=== PATIENT | male | born 1975 | race Caucasian/White ===

== ENCOUNTER → 2025-07-17 | Outpatient (CLI) | payer BC, SELFPAY ==
--- NOTE | 2025-07-17 06:51 | CT_ITS ---
PROCEDURE: LIMITED CHEST CT CARDIAC ONLY 07/17/2025 REASON FOR EXAM: SCREENING TECHNIQUE: Procedure Code: [id number] Modality: CT Procedure: LIMITED CHEST CT CARDIAC ONLY CONTRAST: None One or more dose reduction techniques were used (e.g., Automated exposure control, adjustment of the mA and/or kV according to patient size, use of iterative reconstruction technique). RADIATION DOSE SUMMARY: CTDlvol: 12.19 mGy DLP: 268.17 mGycm COMPARISON: None FINDINGS: The heart is nonenlarged. No coronary artery calcification is seen. The ascending aorta is unremarkable. The visualized portions of the lungs are clear. CT/Limited Chest CT Cardiac Only IMPRESSION: No coronary artery calcification is seen. Reading Location: [place] [id number]
--- OUTSIDE RECORDS SUMMARY | 2025-07-17 06:51 | XMS RPT_ITS | CCD ---
Author Organization [facility] Care Team Providers Care Joint Sealer Name Role Phone Nino Tijerina Unavailable Unavailable Unavailable Nino Tijerina Primary Care Unavailziggy Ng Sr, Dr. Lester Bateman Attending Felicity Jimy Murray MD Primary Care Provider JIMY AGUILA Primary Care Unavailable Nino Tijerina MD Primary Care Provider NINO TIJERINA Primary Care Unavailable GULSHAN HENDERSON Referring Unavailable Gulshan Henderson CNP Unavailable [phone] Celeste LYLES.Enriqueta MAHAJAN Unavailable [phone] Phil Duke APRN.CNP Unavailable [phone] ABRIL BARRY Attending Unavailable JIMY AGUILA Primary Care Unavailable ABRIL BARRY Referring Unavailable JIMY AGUILA Primary Care Unavailable Allergies Allergy Classification Reported Allergen(s) Allergy Type Date of Onset Reaction(s) Facility (1 source) meloxicam Drug Allergy 04-11-2022 [employer] Phone: Medications Current Medications Medication Drug Class(es) Dates Sig (Normalized) Sig (Original) amoxicillin 875 mg / clavulanate 125 mg oral tablet (3 sources) Penicillin-class Antibacterial Start: 05-21-20 19 take 1 tablet by mouth twice daily amoxicillin-clavulani c acid (AUGMENTIN) 875-125 mg per tablet Take 1 tablet by mouth twice daily. 0 05/21/2019 Active meloxicam 15 mg oral tablet (3 sources) Nonsteroidal Anti-inflammatory Drug Start: 06-21-20 17 take 1 tablet by mouth once daily meloxicam (MOBIC) 15 mg tablet Take 1 tablet by mouth once daily. 30 tablet 1 06/21/2017 Active Methocarbamol (2 sources) Muscle Relaxant Start: 02-04-20 25 take 1 tablet by mouth four times daily methocarbamol (TANLOR) 1,000 mg tablet Take 1 tablet by mouth four times daily. 120 tablet 1 02/03/2025 Active methylPREDNISolone (3 sources) Corticosteroid Start: 07-26-20 methylPREDNISolone (MEDROL DOSE-PACK) 4 mg Dose-Pack Indications: Plantar fasciitis As Instructed per package 1 Package 07/26/2017 Active naloxone hydrochloride 40 mg/ml nasal spray (1 source) Opioid Antagonist Start: 05-07-20 naloxone 4 MG/0.1ML LIQD nasal spray 1 spray by Nasal route as needed for Opioid Reversal 2 each 05/07/2024 Active neomycin/polymyxin B/hydrocort (CORTISPORIN OTIC) (3 sources) neomycin/polymyx in B/hydrocort (CORTISPORIN OTIC) Use in the ears. Active sildenafil 100 mg oral tablet (1 source) Phosphodiesterase 5 Inhibitor Start: 05-04-20 sildenafil (VIAGRA) 100 MG tablet 05/04/2022 Active traMADol hydrochloride 50 mg oral tablet (4 sources) Opioid Agonist Start: 11-22-19 End: 12-20-19 take 2 tablets by mouth every six hours as needed for pain traMADol (ULTRAM) 50 MG tablet Indications: Osteoarthritis of right knee, unspecified osteoarthritis type , Chronic pain of right knee Take 2 tablets by mouth every 6 hours as needed for Pain for up to 28 days. Do not fill until 11/21/24 for 28 days. Take lowest dose possible to manage pain Max Daily Amount: 400 mg 224 tablet 11/21/2024 12/19/2024 Active Start: 09-29-2011 take 1 tablet by gianna th every four hours as needed traMADOL 50 mg ORAL tablet Take 1 tablet by mouth every 4 hours as needed for Pain. 40 tablet 0 09/29/2011 Active Completed/Discontinued Medications Medication Drug Class(es) Dates Sig (Normalized) Sig (Original) azithromycin 250 mg oral tablet (2 sources) Macrolide Antimicrobial Start: 02-22-2022 Azithromycin 250 MG Oral Tablet TAKE 2 TABLETS ON DAY 1 THEN TAKE 1 TABLET A DAY FOR 4 DAYS. Quantity: 1 Refills: 0 Ordered: 22-Feb-2022 Nadeem Rolle DO Start : 22-Feb-2022 Active benzonatate 200 mg oral capsule (2 sources) Non-narcotic Antitussive Start: 02-22-2022 take 1 capsule by mouth three times daily as needed Benzonatate 200 MG Oral Capsule TAKE 1 CAPSULE 3 TIMES DAILY NEEDED. Quantity: 30 Refills: 0 Ordered: 22-Feb-2022 Nadeem Rolle DO Start : 22-Feb-2022 Active Problems Active Problems Problem Classification Problem Date Documented Date Episodic/Chronic Fever of unknown origin (2 sources) Fever; Translations: [Fever, unspecified] Episodic Osteoarthritis (7 sources) Unilateral primary osteoarthritis, right knee; Translations: [Osteoarthritis of right knee joint] Onset: 05-07-2024 11-19-2024 Chronic Other connective tissue disease (2 sources) History of total knee arthroplasty; Translations: [Presence of right artificial knee joint] 02-03-2025 Chronic Other connective tissue disease (1 source) Presence of right artificial knee joint; Translations: [Status post right knee replacement] Onset: 02-03-2025 Chronic Other ear and sense organ disorders (1 source) Cholesteatoma of attic, left ear; Translations: [Cholesteatoma of attic, left ear] Onset: 12-15-2022 Episodic Other lower respiratory disease (2 sources) Cough; Translations: [Cough] Episodic Other nervous system disorders (3 sources) Right tarsal tunnel syndrome; Translations: [Tarsal tunnel syndrome, right lower limb] Onset: 03-16-2011 03-16-2011 Chronic Other nervous system disorders (1 source) Other chronic pain; Translations: [Other chronic pain] Onset: 11-19-2024 Chronic Other non-traumatic joint disorders (2 sources) Pain in right knee; Translations: [Pain in joint, lower leg] Onset: 11-19-2024 11-19-2024 Episodic Residual codes; unclassified (1 source) Pain; Translations: [Pain, unspecified] 02-03-2025 Episodic Residual codes; unclassified (1 source) Pain, unspecified; Translations: [Pain] Onset: 02-03-2025 Episodic Unclassified (1 source) Chronic pain of right knee 11-19-2024 Past or Other Problems Problem Classification Problem Date Documented Da te Episodic/Chronic Joint disorders and dislocations; trauma-related (4 sources) Tear of medial meniscus of knee; Translations: [Other tear of medial meniscus, current injury, unspecified knee, initial encounter] Onset: 03-30-2011 03-30-2011 Episodic Other connective tissue disease (4 sources) Plantar fascial fibromatosis; Translations: [Plantar fascial fibromatosis] Onset: 12-01-2010 12-01-2010 Episodic Spondylosis; intervertebral disc disorders; other back problems (3 sources) Disorder of right sciatic nerve; Translations: [Sciatica, right side] Onset: 03-16-2011 03-16-2011 Episodic Results Test Name Value Interpretation Reference Range Facility CNOV 02-03-2025 CNOV Office Visit (ORTHST ) -- GEORGE QUEEN ([id number]) 1975 M Date Time Provider Department 02/03/25 3:20 PM ABRIL BARRY During your visit today, we recorded the following information about you: Abril Barry MD 02/03/2025 4:27 PM Signed George Queen Follow-up right knee pain. Had a scope 14 years ago. Had some arthritis at that time. Since that has been treating for arthritis. He has had multiple injections both steroid and gel. He has had a nerve ablation. He has done therapy. Has progressed to the point where it is affecting his quality life. Has pain at rest and at night with all physical activities. Otherwise healthy.Review of systems negative for fever, weight loss, malaise, fatigue, significant headache, vision changes, hearing loss, neck swelling, cough, chest pain, shortness of breath, dyspnea on exertion, abdominal pain, nausea, vomiting, diarrhea, urinary dysfunction, upper/lower extremity numbness/tingling/weakness /edema, heat/cold intolerance On exam right knee healed arthroscopy portals. Motion 0 to 120 degrees with crepitation. Some guarding. Mild joint line tenderness. No instability. Left knee motion 0 to 130 degrees. X-rays right knee moderate narrowing. Assessment right knee arthritis. Has failed conservative treatment and with like to proceed with definitive treatment which would be knee replacement. Risks and benefits were discussed and all questions answered. Will schedule this for late fall. Ordered him a muscle relaxer, tanlor, to go with the tramadol he is taking. All questions answered. Abril Barry MD Allergies As of Date: 02/03/2025 (No Known Allergies) Date Reviewed: 02/03/2025 Reviewed by: Tamiko Patino MA - Fully Assessed Reason for Visit: Follow Up [171] Primary Visit Diagnosis:Primary osteoarthritis of right knee [M17.11] Other Visit Diagnosis:Status post right knee replacement [Z96.651] Order(s):methocarbamol (TANLOR) 1,000 mg tabletTake 1 tablet by mouth four times daily.Disp: 120 tabletRfl: 1 WALKER FOLDING WHEELED W/O S [[id number]] Order #: [id number] CONSULT TO PHYSICAL THERAPY [9032] Order #: [id number]: 1 FUTURE Prescriptions as of 02/03/2025 - methocarbamol (TANLOR) 1,000 mg tablet Take 1 tablet by mouth four times daily. - neomycin/polymyxin B/hydrocort (CORTISPORIN OTIC) Use in the ears. - amoxicillin-clavulanic acid (AUGMENTIN) 875-125 mg per tablet Take 1 tablet by mouth twice daily. - methylPREDNISolone (MEDROL DOSE-PACK) 4 mg Dose-Pack As Instructed per package - meloxicam (MOBIC) 15 mg tablet Take 1 tablet by mouth once daily. - traMADOL 50 mg ORAL tablet Take 1 tablet by mouth every 4 hours as needed for Pain. Problem List As Of Date 02/03/2025 Noted Resolved Plantar fascial fibromatosis [M72.2] 12/01/2010 Tarsal tunnel syndrome of right side [G57.51] 03/16/2011 Sciatica of right side [M54.31] 03/16/2011 MMT (medial meniscus tear) [S83.249A] 03/30/2011 Prescriptions ordered this encounter Disp Refills Start End METHOCARBAMOL 1,000 MG TABLET 120 * 1 02/03/2025 Cmt: Tanlor only Route: PO Sig: Take 1 tablet by mouth four times daily. Letter Text Encounter Status:Closed by ABRIL BARRY on 02/03/25 Normal [facility] XR KNEE 4V AP/PA BOTH+LAT/ME R RTon 02-03-2025 XR KNEE 4V AP/PA BOTH+LAT/ANA RT * * *Final Report* * * DATE OF EXAM: Feb 03 2025 2:20PM STX 5203 - XR KNEE 4V AP/PA BOTH+LAT/ANA RT / PROCEDURE REASON: Pain * * * * Physician Interpretation * * * * EXAM: XR KNEE 4V AP/PA BOTH+LAT/ANA RT HISTORY: Pain . right knee pain for years TECHNIQUE: XR KNEE 4V AP/PA BOTH+LAT/ANA RT Laterality: RIGHT Number of different views (projections): 4 COMPARISON: 06/24/2024 RESULT: Bone mineralization is normal without aggressive osseous lesion. No fracture or dislocation is present. The joint spaces are stable with minimal medial joint space loss bilaterally. No soft tissue abnormality. IMPRESSION: No acute osseous abnormality. Minimal stable medial knee joint space loss bilaterally. [facility] Transcribe Date/Time: Feb 04 2025 9:45A Dictated by : KATHI ARANA MD This examination was interpreted and the report reviewed and electronically signed by: KATHI ARANA MD on Feb 04 2025 9:47AM EST [id number] Normal [facility] MR Knee - right WO contrasto n 11-19-2024 Degenerative changes most prominent in the medial femorotibial compartment with moderate to high-grade cartilage loss. Degenerative changes of the medial meniscus also with meniscal tear as described. Mild patellar instability. No chondromalacia. [facility] RADIOLOGY EXAMINATION: MRI OF THE RIGHT KNEE WITHOUT CONTRAST11/19/2024 11:00 am COMPARISON: None TECHNIQUE: Multiplanar multisequence MRI of the right knee was performed without the administration of intravenous contrast. HISTORY: ORDERING SYSTEM PROVIDED HISTORY: Osteoarthritis of right knee, unspecified osteoarthritis type, Chronic pain of right knee, Chronic pain of right knee TECHNOLOGIST PROVIDED HISTORY: Reason for exam:->worsening Rt knee pain What reading provider will be dictating this exam?->CRC, FINDINGS: Bones and joints: The medial femorotibial compartment shows moderate to high-grade articular cartilage loss without subchondral changes. The cartilage in the lateral femorotibial compartment is intact. Mild bone marrow signal alteration in the posterolateral tibia near the tibia-fibular articulation and in the intercondylar aspect of the tibia is most consistent with reactive changes. No other pathologic marrow abnormality is seen. There is small knee joint effusion. No significant popliteal cyst. Menisci: The lateral meniscus is normal in morphology and signal. There is fraying and irregular morphology of the free edge of the medial meniscal body and posterior horn. There is suggestion of a horizontal tear in the posterior horn and adjacent body extending to the articular surface best seen on the sagittal images. No meniscal extrusion or para meniscal cyst. Patellofemoral compartment: There is mild lateral subluxation of the patella. No focal or high-grade chondromalacia. Patellar retinacula are intact. No obvious impingement of the suprapatellar or infrapatellar fat. Ligaments: There is mucoid degeneration of the ACL with normal trajectory. The PCL is intact. Collateral ligaments and other major lateral supporting structures show no recent or high-grade sprain. Muscles and tendons: Normal extensor mechanism. Other muscles and tendons around the knee are also unremarkable. Other soft tissues: No significant soft tissue edema around the knee. No extra-articular fluid collections. [facility] RADIOLOGY Chris Hogan MD - 11/19/2024 EXAMINATION: MRI OF THE RIGHT KNEE WITHOUT CONTRAST11/19/2024 11:00 am COMPARISON: None TECHNIQUE: Multiplanar multisequence MRI of the right knee was performed without the administration of intravenous contrast. HISTORY: ORDERING SYSTEM PROVIDED HISTORY: Osteoarthritis of right knee, unspecified osteoarthritis type, Chronic pain of right knee, Chronic pain of right knee TECHNOLOGIST PROVIDED HISTORY: Reason for exam:->worsening Rt knee pain What reading provider will be dictating this exam?->CRC, FINDINGS: Bones and joints: The medial femorotibial compartment shows moderate to high-grade articular cartilage loss without subchondral changes. The cartilage in the lateral femorotibial compartment is intact. Mild bone marrow signal alteration in the posterolateral tibia near the tibia-fibular articulation and in the intercondylar aspect of the tibia is most consistent with reactive changes. No other pathologic marrow abnormality is seen. There is small knee joint effusion. No significant popliteal cyst. Menisci: The lateral meniscus is normal in morphology and signal. There is fraying and irregular morphology of the free edge of the medial meniscal body and posterior horn. There is suggestion of a horizontal tear in the posterior horn and adjacent body extending to the articular surface best seen on the sagittal images. No meniscal extrusion or para meniscal cyst. Patellofemoral compartment: There is mild lateral subluxation of the patella. No focal or high-grade chondromalacia. Patellar retinacula are intact. No obvious impingement of the suprapatellar or infrapatellar fat. Ligaments: There is mucoid degeneration of the ACL with normal trajectory. The PCL is intact. Collateral ligaments and other major lateral supporting structures show no recent or high-grade sprain. Muscles and tendons: Normal extensor mechanism. Other muscles and tendons around the knee are also unremarkable. Other soft tissues: No significant soft tissue edema around the knee. No extra-articular fluid collections. IMPRESSION: Degenerative changes most prominent in the medial femorotibial compartment with moderate to high-grade cartilage loss. Degenerative changes of the medial meniscus also with meniscal tear as described. Mild patellar instability. No chondromalacia. [facility] Radiology Study observation (narrative) [facility] MR Knee - right WO contrastO rdered By: Chris Hogan on 11-19-2024 [facility] Work Phone: MRI KNEE RIGHT WO CONTRASTon 11-19-2024 MRI KNEE RIGHT WO CONTRAST EXAMINATION: MRI OF THE RIGHT KNEE WITHOUT CONTRAST11/19/2024 11:00 am COMPARISON: None TECHNIQUE: Multiplanar multisequence MRI of the right knee was performed without the administration of intravenous contrast. HISTORY: ORDERING SYSTEM PROVIDED HISTORY: Osteoarthritis of right knee, unspecified osteoarthritis type, Chronic pain of right knee, Chronic pain of right knee TECHNOLOGIST PROVIDED HISTORY: Reason for exam:->worsening Rt knee pain What reading provider will be dictating this exam?->CRC, FINDINGS: Bones and joints: The medial femorotibial compartment shows moderate to high-grade articular cartilage loss without subchondral changes. The cartilage in the lateral femorotibial compartment is intact. Mild bone marrow signal alteration in the posterolateral tibia near the tibia-fibular articulation and in the intercondylar aspect of the tibia is most consistent with reactive changes. No other pathologic marrow abnormality is seen. There is small knee joint effusion. No significant popliteal cyst. Menisci: The lateral meniscus is normal in morphology and signal. There is fraying and irregular morphology of the free edge of the medial meniscal body and posterior horn. There is suggestion of a horizontal tear in the posterior horn and adjacent body extending to the articular surface best seen on the sagittal images. No meniscal extrusion or para meniscal cyst. Patellofemoral compartment: There is mild lateral subluxation of the patella. No focal or high-grade chondromalacia. Patellar retinacula are intact. No obvious impingement of the suprapatellar or infrapatellar fat. Ligaments: There is mucoid degeneration of the ACL with normal trajectory. The PCL is intact. Collateral ligaments and other major lateral supporting structures show no recent or high-grade sprain. Muscles and tendons: Normal extensor mechanism. Other muscles and tendons around the knee are also unremarkable. Other soft tissues: No significant soft tissue edema around the knee. No extra-articular fluid collections. IMPRESSION: Degenerative changes most prominent in the medial femorotibial compartment with moderate to high-grade cartilage loss. Degenerative changes of the medial meniscus also with meniscal tear as described. Mild patellar instability. No chondromalacia. Interpreted by: Chris Hogan MD Signed by: Chris Hogan MD 11/19/24 Final result Normal [facility] XR KNEE 4V AP/PA/LAT/MERCH B [facility] 06-24-2024 XR KNEE 4V AP/PA/LAT/MERCH COREY * * *Final Report* * * DATE OF EXAM: Jun 24 2024 12:06PM MDX [id number] - XR KNEE 4V AP/PA/LAT/MERCH COREY / PROCEDURE REASON: osteoarthritis of rt knee, rt knee pain, STANDING * * * * Physician Interpretation * * * * EXAM: XR KNEE 4V AP/PA/LAT/MERCH COREY PATIENT HISTORY: osteoarthritis of rt knee, rt knee pain, STANDING TECHNIQUE: AP, PA, lateral, and merchant view radiograph of the bilateral knees with 5 images COMPARISON: No relevant prior available FINDINGS: No acute fracture or dislocation. Mild joint space narrowing of the medial compartments, more prominent on the right. Moderate right and small left suprapatellar joint effusions. No soft tissue edema or radiopaque foreign body. IMPRESSION: Mild joint space narrowing of the medial compartments of the knees, more prominent on the right without additional stigmata of osteoarthrosis. Coal Passer: [facility] Transcribe Date/Time: Jun 26 2024 10:07A Dictated by : DUNG BLANDON MD This examination was interpreted and the report reviewed and electronically signed by: DUNG BLANDON MD on Jun 26 2024 10:10AM EST [id number] Normal [facility] CBC (INCLUDES DIFF/PLT)on Basophils (Bld) [#/Vol] 0.06 10*3/uL Normal 0-200 [facility] Comment on above: Performed By: #### 7 600, 19458, 6399 #### [facility] [place] [address] [place] Captain: Daryl Long MD Basophils/100 WBC (Bld) 0.7 % Normal [facility] Comment on above: Performed By: #### 7 600, 76802, 6399 #### [facility] [place] [address] [place] Captain: Daryl Long MD Eosinophils (Bld) [#/Vol] 0.224 10*3/uL Normal 15-500 [facility] Comment on above: Performed By: #### 7 600, 88639, 6399 #### [facility] [place] [address] [place] Captain: Daryl Long MD Eosinophils/100 WBC (Bld) 2.6 % Normal [facility] Comment on above: Performed By: #### 7 600, 92026, 6399 #### [facility] [place] [address] [place] Captain: Daryl Long MD Erythrocyte distribution width (RBC) [Ratio] 12.9 % Normal 11.0-15.0 [facility] Comment on above: Performed By: #### 7 600, 38843, 6399 #### [facility] [place] [address] [place] Captain: Daryl Long MD Hematocrit (Bld) [Volume fraction] 47.2 % Normal 38.5-50.0 [facility] Comment on above: Performed By: #### 7 600, 85910, 6399 #### [facility] of [place] [address] [place] Captain: Daryl Long MD Hemoglobin (Bld) [Mass/Vol] 16.0 g/dL Normal 13.2-17.1 [facility] Comment on above: Performed By: #### 7 600, 31288, 6399 #### [facility] of [place] [address] [place] Captain: Daryl Long MD Lymphocytes (Bld) [#/Vol] 3.096 10*3/uL Normal 850-3900 [facility] Comment on above: Performed By: #### 7 600, 61524, 6399 #### [facility] of [place] [address] [place] Captain: Daryl Long MD Lymphocytes/100 WBC (Bld) 36.0 % Normal [facility] Comment on above: Performed By: #### 7 600, 13876, 6399 #### [facility] [place] [address] [place] Captain: Daryl Long MD MCH (RBC) [Entitic mass] 30.3 pg Normal 27.0-33.0 [facility] Comment on above: Performed By: #### 7 600, 26531, 6399 #### [facility] of [place] [address] [place] Captain: Daryl Long MD MCHC (RBC) [Mass/Vol] 33.9 g/dL Normal 32.0-36.0 [facility] Comment on above: Performed By: #### 7 600, 27865, 6399 #### [facility] of [place] [address] [place] Captain: Daryl Long MD MCV (RBC) [Entitic vol] 89.4 fL Normal 80.0-100.0 [facility] Comment on above: Performed By: #### 7 600, 61002, 6399 #### [facility] of [address], [address] [place] [address] [place] Captain: Daryl Long MD Monocytes (Bld) [#/Vol] 0.49 10*3/uL Normal 200-950 [facility] Comment on above: Performed By: #### 7 600, 66378, 6399 #### [facility] of [address], [address] [place] [address] [place] Captain: Daryl Long MD Monocytes/100 WBC (Bld) 5.7 % Normal [facility] Comment on above: Performed By: #### 7 600, 12057, 6399 #### [facility] of [place] [address] [place] Captain: Daryl Long MD Neutrophils (Bld) [#/Vol] 4.73 10*3/uL Normal 0698-0421 [facility] Comment on above: Performed By: #### 7 600, 37033, 6399 #### [facility] of [place] [address] [place] Captain: Daryl Long MD Neutrophils/100 WBC (Bld) 55 % Normal [facility] Comment on above: Performed By: #### 7 600, 86364, 6399 #### [facility] of [place] [address] [place] Captain: Daryl Long MD Platelet mean volume (Bld) [Entitic vol] 10.1 fL Normal 7.5-12.5 [facility] Comment on above: Performed By: #### 7 600, 88497, 6399 #### [facility] of [place] [address] [place] Captain: Daryl Long MD Platelets (Bld) [#/Vol] 264 10*3/uL Normal 140-400 [facility] Comment on above: Performed By: #### 7 600, 64328, 6399 #### [facility] of [place] [address] [place] Captain: Daryl Long MD RBC (Bld) [#/Vol] 5.28 10*6/uL Normal 4.20-5.80 [facility] Comment on above: Performed By: #### 7 600, 64427, 6399 #### [facility] of [address], [address] [place] [address] [place] Captain: Daryl Long MD WBC (Bld) [#/Vol] 8.6 10*3/uL Normal 3.8-10.8 [facility] Comment on above: Performed By: #### 7 600, 70883, 6399 #### [facility] of [place] [address] [place] Captain: Daryl Long MD [facility] 05-01-2023 Albumin [Mass/Vol] 4.5 g/dL Normal 3.6-5.1 [facility] Comment on above: Performed By: #### 7 600, 18427, 6399 #### [facility] of [address], [address] [place] [address] [place] Captain: Daryl Long MD Albumin/Globulin [Mass ratio] 1.9 {ratio} Normal 1.0-2.5 [facility] Comment on above: Performed By: #### 7 600, 78674, 6399 #### [facility] of [place] [address] [place] Captain: Daryl Long MD ALP [Catalytic activity/Vol] 65 U/L Normal 36-130 [facility] Comment on above: Performed By: #### 7 600, 57823, 6399 #### [facility] of [address], [address] [place] [address] [place] Captain: Daryl Long MD ALT [Catalytic activity/Vol] 22 U/L Normal 9-46 [facility] Comment on above: Performed By: #### 7 600, 66096, 6399 #### [facility] of [place] [address] [place] Captain: Daryl Long MD AST [Catalytic activity/Vol] 20 U/L Normal 10-40 [facility] Comment on above: Performed By: #### 7 600, 97212, 6399 #### [facility] [place] [address] [place] Captain: Daryl Long MD Bilirubin [Mass/Vol] 0.5 mg/dL Normal 0.2-1.2 [facility] Comment on above: Performed By: #### 7 600, 57526, 6399 #### [facility] [place] [address] [place] Captain: Daryl Long MD BUN/CREATININE RATIO SEE NOTE: Normal 6-22 [facility] Comment on above: Result Comment: Not Reported: BUN and Creatinine are within reference range. Performed By: #### 7 600, 14519, 6399 #### [facility] [place] [address] [place] Captain: Daryl Long MD Calcium [Mass/Vol] 9.5 mg/dL Normal 8.6-10.3 [facility] Comment on above: Performed By: #### 7 600, 87197, 6399 #### [facility] [place] [address] [place] Captain: Daryl Long MD Chloride [Moles/Vol] 103 mmol/L Normal 98-110 [facility] Comment on above: Performed By: #### 7 600, 80384, 6399 #### [facility] [place] [address] [place] Captain: Daryl Long MD CO2 [Moles/Vol] 28 mmol/L Normal 20-32 [facility] Comment on above: Performed By: #### 7 600, 74836, 6399 #### [facility] of [place] [address] [place] Captain: Daryl Long MD Creatinine [Mass/Vol] 1.04 mg/dL Normal 0.60-1.29 [facility] Comment on above: Performed By: #### 7 600, 14555, 6399 #### [facility] [place] [address] [place] Captain: Daryl Long MD GFR/1.73 sq M.predicted among non-blacks MDRD (S/P/Bld) [Vol rate/Area] 89 mL/min/{1.73_m2} Normal > OR = 60 [facility] Comment on above: Performed By: #### 7 600, 98604, 6399 #### [facility] [address], [address] [place] [address] [place] Captain: Daryl Long MD Globulin (S) [Mass/Vol] 2.4 g/dL Normal 1.9-3.7 [facility] Comment on above: Performed By: #### 7 600, 98526, 6399 #### [facility] [place] [address] [place] Captain: Daryl Long MD Glucose [Mass/Vol] 68 mg/dL Normal 65-99 [facility] Comment on above: Result Comment: Fasting reference interval Performed By: #### 7 600, 30127, 6399 #### [facility] [place] [address] [place] Captain: Daryl Long MD Potassium [Moles/Vol] 4.7 mmol/L Normal 3.5-5.3 [facility] Comment on above: Performed By: #### 7 600, 60768, 6399 #### [facility] [place] [address] [place] Captain: Daryl Long MD Protein [Mass/Vol] 6.9 g/dL Normal 6.1-8.1 [facility] Comment on above: Performed By: #### 7 600, 44300, 6399 #### [facility] [place] [address] [place] Captain: Daryl Long MD Sodium [Moles/Vol] 137 mmol/L Normal 135-146 [facility] Comment on above: Performed By: #### 7 600, 64691, 13 #### [facility] [address], [address] [place] [address] [place] Captain: Daryl Long MD Urea nitrogen [Mass/Vol] 12 mg/dL Normal 7-25 [facility] Comment on above: Performed By: #### 7 600, 20009, 6399 #### [facility] [address], [address] [place] [address] [place] Captain: Daryl Long MD LIPID PANEL, [facility] - Cholesterol [Mass/Vol] 167 mg/dL Normal <200 [facility] Comment on above: Performed By: #### 7 600, 50315, 6399 #### [facility] [address], [address] [place] [address] [place] Captain: Daryl Long MD Cholesterol in HDL [Mass/Vol] 50 mg/dL Normal > OR = 40 [facility] Comment on above: Performed By: #### 7 600, 50442, 6399 #### [facility] [address], [address] [place] [address] [place] Captain: Daryl Long MD Cholesterol in LDL [Mass/Vol] 100 mg/dL High [facility] Comment on above: Result Comment: Refe rence range: <100 Desirable range <100 mg/dL for primary prevention; <70 mg/dL for patients with CHD or diabetic patients with > or = 2 CHD risk factors. LDL-C is now calculated using the Alisha calculation, which is a validated novel method providing better accuracy than the Friedewald equation in the estimation of LDL-C. Luis BANGURA et al. JADE. 2013;310(19): 7058-3706 (http://education.edjing.BaubleBar/faq/KXV698) Performed By: #### 7 600, 74389, 6399 #### [facility] of [address], [address] [place] [address] [place] Captain: Daryl Long MD Cholesterol.total/ Cholesterol in HDL [Mass ratio] 3.3 {ratio} Normal <5.0 [facility] Comment on above: Performed By: #### 7 600, 40834, 6399 #### [facility] [address], [address] [place] [address] [place] Captain: Daryl Long MD NON HDL CHOLESTEROL 117 mg/dL (calc) Normal <130 [facility] Comment on above: Result Comment: For patients with diabetes plus 1 major ASCVD risk factor, treating to a non-HDL-C goal of <100 mg/dL (LDL-C of <70 mg/dL) is considered a therapeutic option. Performed By: #### 7 600, 40584, 6399 #### [facility] [address], [address] [place] [address] [place] Captain: Daryl Long MD Triglyceride [Mass/Vol] 83 mg/dL Normal <150 [facility] Comment on above: Performed By: #### 7 600, 88506, 6399 #### [facility] [address], [address] [place] [address] [place] Captain: Daryl Long MD NR CT IAC WO CONTRASTon - NR CT IAC WO CONTRAST Patient Name: GEORGE QUEEN STUDY: CT IAC WO CONTRAST; 12/15/2022 11:53 am INDICATION: cholesteatoma of attic left ear. COMPARISON: None. ACCESSION NUMBER(S): [id number] ORDERING CLINICIAN: LESTER NG TECHNIQUE: The temporal bones were studied in the axial plane utilizing thin overlapping sections. Coronal reconstructions were made. FINDINGS: Right temporal bone The mastoid air cells are unremarkable. The external auditory canal is normal. The middle ear structures and ossicles are normal. The inner ear is unremarkable. The internal auditory canal is normal in size. The vestibular aqueduct is normal in size. The bony margins of the superior semicircular canal are intact. Left temporal bone The mastoid air cells are unremarkable. The external auditory canal is normal. The middle ear structures and ossicles are normal. The inner ear is unremarkable. The internal auditory canal is normal in size. The vestibular aqueduct is normal in size. The bony margins of the superior semicircular canal are intact. There is polypoid soft tissue thickening throughout the ethmoid and maxillary sinuses without retained fluid IMPRESSION: CT of the temporal bones is unremarkable. THIS EXAMINATION WAS INTERPRETED AT [facility] Electronically signed by: ANGELA SLAUGHTER MD Normal [facility] CORONAVIRUS 2019 BY PCRon SARS-CoV-2 (COVID-19) RNA LUIS MIGUEL+probe Ql (Unsp spec) Detected Abnormal Not Detected [facility] Comment on above: Result Comment: . This assay is designed to detect the N, ORF1ab and/or S genes of SARS-CoV-2 via nucleic acid amplification. A Negative (NOT DETECTED) result does not preclude 2019-nCoV infection since the adequacy of sample collection and/or low viral burden may result in presence of viral nucleic acids below the clinical sensitivity of this test method. Negative (NOT DETECTED) result should not be used as the sole basis for treatment or other patient management decisions. Rather negative results should be combined with clinical observations, patient history, and epidemiological information to make patient management decisions. Fact sheet for providers: https://www.fda.gov/media/804875/download Fact sheet for patients: https://www.fda.gov/media/242264/download This test has received FDA Emergency Use Authorization (EUA) and has been verified by [facility] ([facility]). This test is only authorized for the duration of time that circumstances exist to justify the authorization of the emergency use of in vitro diagnostic tests for the detection of SARS-CoV-2 virus and/or diagnosis of COVID-19 infection under section 564(b)(1) of the Act, 21 U.S.C. 360bbb-3(b)(1), unless the authorization is terminated or revoked sooner. [facility] is certified under CLIA-88 as qualified to perform high complexity testing. Testing is performed in the [facility] laboratories located at [address] [place] [address]. Performed By: #### C OV19 #### [place] [id number] CORONAVIRUS 2019 BY PCRon Lab Specimen Source Nasal, Nasopharyngeal Normal [facility] Comment on above: Performed By: #### C OV19 #### [address] [place] [address] Coronavirus 2019 RNA by PCR, Symptomaticon 02-22-2022 Coronavirus 2019 RNA by PCR, Symptomatic Detected Abnormal See Below [facility] Work Phone: Comment on above: SOURCE: Nasal, Nasop haryngealReference Range: Not Detected.This assay is designed to detect the N, ORF1ab and/or S genes of SARS-CoV-2 via nucleic acid amplification. A Negative (NOT DETECTED) result does not preclude 2019-nCoV infection since the adequacy of sample collection and/or low viral burden may result in presence of viral nucleic acids below the clinical sensitivity of this test method. Negative (NOT DETECTED) result should not be used as the sole basis for treatment or other patient management decisions. Rather negative results should be combined with clinical observations, patient history, and epidemiological information to make patient management decisions.Fact sheet for providers: https://www.fda.gov/media/531634/downloadFact sheet for patients: https://www.fda.gov/media/207153/downloadThis test has received FDA Emergency Use Authorization (EUA) and has been verified by [facility] ([facility]). This test is only authorized for the duration of time that circumstances exist to justify the authorization of the emergency use of in vitro diagnostic tests for the detection of SARS-CoV-2 virus and/or diagnosis of COVID-19 infection under section 564(b)(1) of the Act, 21 U.S.C. 360bbb-3(b)(1), unless the authorization is terminated or revoked sooner. [facility] is certified under CLIA-88 as qualified to perform high complexity testing. Testing is performed in the [facility] laboratories located at [address] [place] [address]. Office Visit (Urgent Care)on 02-22-2022 Follow-up visit Diagnoses/Problems Assessed Cough (786.2) (R05.9) Fever (780.60) (R50.9) Orders Cough Start: Azithromycin 250 MG Oral Tablet; TAKE 2 TABLETS ON DAY 1 THEN TAKE 1 TABLET A DAY FOR 4 DAYS Rx By: Nadeem Rolle; Dispense: 0 Days ; #:1 X 6 Tablet Pack; Refill: 0;For: Cough; CAMI = N; Sent To: [id number] Start: Benzonatate 200 MG Oral Capsule; TAKE 1 CAPSULE 3 TIMES DAILY NEEDED Rx By: Nadeem Rolle; Dispense: 10 Days ; #:30 Capsule; Refill: 0;For: Cough; CAMI = N; Sent To: [id number] Cough, Fever Coronavirus 2019 RNA by PCR, Symptomatic; Status:In Progress - Specimen/Data Collected,Retrospective Authorization; Done: [id number] Perform:Lab Services - Lab To Draw (Non-Blood Test); Due:23May2022; Last Updated By:Padmini Hatch; 02/22/2022 3:15:42 PM;Ordered; For:Cough, Fever; Ordered By:Nadeem Rolle; SocHx: Current smoker Tobacco Use Screening; Status:Complete; Done: [id number] Perform:Not Applicable;Ordered; For:SocHx: Current smoker; Ordered By:Padmini Hatch; Patient Discussion/Summary URI. We will treat with Zithromax and Tessalon. Increase rest and fluids. OTC meds as needed. Follow up with your PCP as needed. Provider Impressions URI. We will treat with Zithromax and Tessalon. Increase rest and fluids. OTC meds as needed. Follow up with your PCP as needed. Chief Complaint Chief Complaints Cough Ear Pain Fever History of Present Illness Patient is a 46-year-old male with chief complaint of productive cough, fever and ear blockage for 1 week. Patient complains of wheezing, chest pain and shortness of breath. Patient states T-max was 101 F with chills. Patient denies any ear pain with ear blockage. Patient denies any eye pain or eye discharge. Patient denies any sore throat or difficulty swallowing. Patient states no relief with mixi-xus-kwuqoks medications. Review of Systems Constitutional: as noted in HPI. Eyes: as noted in HPI. ENT: as noted in HPI. Cardiovascular: as noted in HPI. Respiratory: as noted in HPI. Active Problems Problems Cough (786.2) (R05.9) Fever (780.60) (R50.9) Social History Problems Current smoker (305.1) (F17.200) Allergies Medication No Known Drug Allergies Recorded By: Padmini Hatch; 02/22/2022 3:15:42 PM Vitals Vital Signs Recorded: [id number] 03:13PM Vmzigoqjydf72 F, Oral Heart Rate73 Xurermzbzvg92 Klghbwpt317 Eqbulhisp81 Height6 ft 1 in Siyunk735 lb 6.4 oz BMI Ijhbtuqgwj15.15 kg/m2 BSA Calculated2.21 Tobacco Usea) Yes Patient encouraged to stop using tobacco productsYes PHQ-2 #1. Over the last 2 weeks have you felt down, depressed or hopeless? (If yes, answer PHQ-9 below)No PHQ-2 #2. Over the last 2 weeks have you felt little interest or pleasure in doing things? (If yes, answer PHQ-9 below)No Falls Screening (Age 18+)a) No falls within the last year O2 Bfuzgsibjq94 Physical Exam Vital signs were reviewed. GENERAL:Patient appears well nourished and is comfortable. HEAD:Patient has no tenderness to palpation over the frontal and maxillary sinuses. EYES:CHI. Conjunctiva is clear. EARS:Canals are patent, without erythema, and TM's are clear and non-bulging. NOSE:Turbinates are not boggy or pale, and the septum is in tact. THROAT:Tonsils are normal in size and lack exudate. Posterior pharynx is not erythematous. No PND NECK:There is no cervical lymphadenopathy or decreased ROM HEART:RRR. Has S1S2, no S3S4, rubs, clicks or murmurs. LUNGS:CTAB. Effort is normal. Signatures Electronically signed by : Nadeem Rolle DO; Feb 22 2022 3:58PM EST (Author) Normal [facility] Tobacco Screening.on 022 Adult depression screening assessment No [facility] Work Phone: Fall risk assessment a) No falls within the last year [facility] Work Phone: Tobacco use status CPHS a) Yes [facility] Work Phone: Tobacco Screening. Yes [facility] Work Phone: Vital Signs Date Time Vital Sign Value Performing Clinician Liliane barnes 02-22-2022 15:13-0400 Body height 185.42 cm Nino Tijerina Work Phone: [facility] Work Phone: 02-22-2022 15:13-0400 Body mass index (BMI) [Ratio] 28.15 kg/m2 Nino Tijerina Work Phone: [facility] Work Phone: 02-22-2022 15:13-0400 Body surface area Derived from formula 2.21 m2 Nino Jeremias Tijerina Work Phone: [facility] Work Phone: 02-22-2022 15:13-0400 Body temperature 98 [degF] Nino Jeremias Tijerina Work Phone: [facility] Work Phone: 02-22-2022 15:13-0400 Body weight 96.8 kg Nino Tijerina Work Phone: [facility] Work Phone: 02-22-2022 15:13-0400 Diastolic blood pressure 85 mm[Hg] Nino Jeremias LiTijerina Work Phone: [facility] Work Phone: 02-22-2022 15:13-0400 Heart rate 73 /min Nino Jeremias LiTijerina Work Phone: [facility] Work Phone: 02-22-2022 15:13-0400 Respiratory rate 18 /min Nino Tijerina Work Phone: [facility] Work Phone: 02-22-2022 15:13-0400 SaO2% (BldA) [Mass fraction] 97 % Nino Jeremias Tijerina Work Phone: [facility] Work Phone: 02-22-2022 15:13-0400 Systolic blood pressure 120 mm[Hg] Nino Tijerina Work Phone: [facility] Work Phone: Encounters Encounter Date Encounter Type Care Provider Facility Start: 02-03-2025 End: 02-03-2025 Patient encounter procedure Abril Barry MD Work Phone: Orthopaedics Comment on above: Primary osteoarthrit is of right knee (Primary Dx); Status post right knee replacement Start: 02-03-2025 End: 02-03-2025 ambulatory ABRIL BARRY Facility:[facility] Start: 02-03-2025 End: 02-03-2025 Subsequent hospital visit by physician Xr [facility] Work Phone: Radiology Comment on above: Pain [R52] Start: 11-19-2024 End: 11-21-2024 ambulatory NINO TIJERINA [facility] Start: 11-19-2024 End: 11-21-2024 Subsequent hospital visit by physician Raymundo Mri Room 1 [facility] MRI Comment on above: Osteoarthritis of ri ght knee, unspecified osteoarthritis type; Chronic pain of right knee Start: 06-24-2024 ambulatory JIMY AGUILA Facility: [facility] Start: 06-24-2024 End: 06-24-2024 Subsequent hospital visit by physician Xr [facility] Radiology Comment on above: Unilateral primary o steoarthritis, right knee [M17.11] Start: 12-15-2022 ambulatory Nino Tijerina Facility:[id number] Start: 02-22-2022 Office outpatient ne w 30 minutes Nino Tijerina Work Phone: [facility] Work Phone: Procedures Date Procedure Procedure Detail Performing Clinician Start: 11-19-2024 Mri any jt lower ext rem w/o contrast matrl Gulshan Henderson ACCOUNTS RECEIVABLE ANALYST - GUN PROFILER Work Phone: Plan of Treatment Date Care Activity Detail Author Start: 04-13-2032 DTaP/Tdap/Td vaccine (2 - Td or Tdap) DTaP/Tdap/Td vaccine (2 - Td or Tdap) [facility] Start: 04-13-2032 Urine microalbumin profile DTaP,Tdap,Td Vaccine (2 - Td or Tdap) [facility] Start: 04-06-2025 Influenza vaccination Influenza Vacc ine (#1) [facility] Start: 03-06-2025 Influenza vaccination Flu vacc ine (Season Ended) [facility] Start: 12-17-2024 End: 12-17-2024 Patient encounter procedure 12/17/2024 9:30 AM EDT Office Visit [facility] [address] [place] [address] Gulshan Henderson, ACCOUNTS RECEIVABLE ANALYST - GUN PROFILER [address] [place] [address] 4 week follow up [facility] Comment on above: 4 week follow up Start: 04-06-2024 Covid-19 Vaccine ( season) Covid-19 Vaccine ( season) [facility] Start: 04-06-2024 Influenza vaccination Influenza Vacc ine (#1) [facility] Start: 11-09-2020 Diabetes Screening Diabetes Screenin g [facility] Start: 11-09-2020 Screening for malign ant neoplasm of colon [facility] Start: 2015 Lipid panel Lipids [facility] Start: 11-09-2010 Diabetes screen Diabetes screen [facility] Start: 11-09-2010 Lipid panel Lipid Screening [facility] Start: 11-09-1994 Hepatitis B Vaccine (1 of 3 - 19+ 3-dose series) Hepatitis B Vaccine (1 of 3 - 19+ 3-dose series) [facility] Start: 11-09-1994 Pneumococcal 0-49 ye ars Vaccine (1 of 2 - PCV) Pneumococcal 0-49 years Vaccine (1 of 2 - PCV) [facility] Start: 11-09-1993 Anxiety Screening Anxiety Screening [facility] Start: 11-09-1993 Depression Screening Depression Scre ening [facility] Start: 11-09-1993 Hepatitis C screening [facility] Start: 11-09-1993 HIV screening HIV Screening [facility] Start: 11-09-1990 HIV screening HIV screen [facility] Start: 1987 Depression Screen Depression Screen [facility] XR Knee - right 4 Views XR KNEE GENERAL 4V AP BOTH/PA BOTH/LAT/MERC RIGHT Radiology Routine Pain 02/03/2025 2:[address] [facility] Work Phone: Immunizations Immunization Date Immunization Notes Care Provider Dom bhandari 04-13-2022 tetanus toxoid, redu luiz diphtheria toxoid, and acellular pertussis vaccine, adsorbed Tyrrell 1 Bon [facility] Payers Date Payer Category Payer [employer] [facility] BLUE CARD PPO OOS [id number] 2019 Unknown 2019 Unknown [id number] 1975 Unknown [id number] 1975 Unknown [id number] Social History Date Type Detail Facility Start: 06-20-2011 End: 02-03-2025 Current smoker Current smoker [facility] Work Phone: Start: 06-20-2011 End: 11-21-2023 Tobacco smoking status NHIS Smokes tobacco daily [facility] Work Phone: Start: 02-16-2012 History of tobacco use Cigarette Smo ker [facility] Start: 06-20-2011 End: 11-21-2023 Tobacco use and exposure Smokeless tobacco non-user [facility] Start: 06-26-2019 Alcoholic beverage intake Current non-drinker of alcohol (finding) [facility] Start: 06-26-2019 End: 02-03-2025 Tobacco use panel [facility] National Score (1-10 0), lower number is lower risk Not on file [facility] Start: 1975 Sex assigned at Not on file [facility] Start: 11-19-2024 Alcoholic beverage intake Lifetime non-drinker (finding) Pradeep Mike [employer] Start: 09-17-2012 [facility] (finding[facility] Functional Status Date Assessment Result Facility 05-12-2014 Are you deaf, or do you have serious difficulty hearing No 05/12/2014 10:10 AM Kathy Jimenez MA No [facility] 05-12-2014 Are you blind, or do you have serious difficulty seeing, even when wearing glasses No 05/12/2014 10:10 AM Kathy Jimenez MA No [facility] 05-12-2014 Do you have serious difficulty walking or climbing stairs No 05/12/2014 10:10 AM Kathy Jimenez MA [facility] 05-12-2014 Do you have difficul ty dressing or bathing No 05/12/2014 10:10 AM Kathy Jimenez MA No [facility] 05-12-2014 Because of a physica l, mental, or emotional condition, do you have difficulty doing errands alone such as visiting a physician's office or shopping No 05/12/2014 10:10 AM Kathy Jimenez MA [facility] Mental Status Date Assessment Result Facility 05-12-2014 Because of a physica l, mental, or emotional condition, do you have serious difficulty concentrating, remembering, or making decisions No 05/12/2014 10:10 AM Kathy Jimenez MA [facility] Progress note 02-03-2025 Note Date & Type Note Facility 02-03-2025 Note HNO ID: [id number] Author: ABRIL BARRY MD Service: ? Author Type: Physician Type: Progress Notes Filed: 02/03/2025 16:27 Note Text: George Queen Follow-up right knee pain. Had a scope 14 years ago. Had some arthritis at that time. Since that has been treating for arthritis. He has had multiple injections both steroid and gel. He has had a nerve ablation. He has done therapy. Has progressed to the point where it is affecting his quality life. Has pain at rest and at night with all physical activities. Otherwise healthy.Review of systems negative for fever, weight loss, malaise, fatigue, significant headache, vision changes, hearing loss, neck swelling, cough, chest pain, shortness of breath, dyspnea on exertion, abdominal pain, nausea, vomiting, diarrhea, urinary dysfunction, upper/lower extremity numbness/tingling/weakness/edema, heat/cold intolerance On exam right knee healed arthroscopy portals. Motion 0 to 120 degrees with crepitation. Some guarding. Mild joint line tenderness. No instability. Left knee motion 0 to 130 degrees. X-rays right knee moderate narrowing. Assessment right knee arthritis. Has failed conservative treatment and with like to proceed with definitive treatment which would be knee replacement. Risks and benefits were discussed and all questions answered. Will schedule this for late fall. Ordered him a muscle relaxer, tanlor, to go with the tramadol he is taking. All questions answered. Abril Barry MD [facility] History of Present illness Narrative 02-03-2025 Abril Barry MD - 02/03/2025 4:13 PM EDT Note Date & Type Note Facility 02-03-2025 History of Presen t illness Narrative George Queen Follow-up right knee pain. Had a scope 14 years ago. Had some arthritis at that time. Since that has been treating for arthritis. He has had multiple injections both steroid and gel. He has had a nerve ablation. He has done therapy. Has progressed to the point where it is affecting his quality life. Has pain at rest and at night with all physical activities. Otherwise healthy.Review of systems negative for fever, weight loss, malaise, fatigue, significant headache, vision changes, hearing loss, neck swelling, cough, chest pain, shortness of breath, dyspnea on exertion, abdominal pain, nausea, vomiting, diarrhea, urinary dysfunction, upper/lower extremity numbness/tingling/weakness/edema, heat/cold intolerance On exam right knee healed arthroscopy portals. Motion 0 to 120 degrees with crepitation. Some guarding. Mild joint line tenderness. No instability. Left knee motion 0 to 130 degrees. X-rays right knee moderate narrowing. Assessment right knee arthritis. Has failed conservative treatment and with like to proceed with definitive treatment which would be knee replacement. Risks and benefits were discussed and all questions answered. Will schedule this for late fall. Ordered him a muscle relaxer, tanlor, to go with the tramadol he is taking. All questions answered. Abril Barry MD documented in this encounter [facility] History of Present illness Narrative 06-24-2024 Kalli Ac RT(R) - 06/24/2024 12:45 PM EST Note Date & Type Note Facility 06-24-2024 History of Presen t illness Narrative Radiology Service Progress Note PATIENT NAME: George Queen DATE OF SERVICE: June 24, 2024 TIME: 12:05 PM PATIENT IDENTITY VERIFICATION COMPLETED USING TWO (2) IDENTIFIERS: Name and Date of confirmed by patient verbally. FALL SCREENING: Has the patient had 2 falls in the last year or 1 fall with injury or currently using an Ambulatory Assistive Device (Walker, Cane, Wheelchair, Crutches, etc.)? No PATIENT GENDER DATA: Male PATIENT RELEVANT IMPLANT DATA REVIEWED: Not Applicable PATIENT PRESENTS WITH AN IMPLANTABLE OR ATTACHED STATE ATTORNEY: No RADIOLOGY DEPARTMENT: General X-ray: Exam(s) Completed: Lower Extremity X-Ray(s): Knee, AP / Lat / Tunne / Merchant Bilateral PERIPHERAL IV DATA: Not applicable SIGNED BY: ALICJA Barrett) June 24, 2024 12:05 PM documented in this encounter [facility] Progress note 06-24-2024 Note Date & Type Note Facility 06-24-2024 Note HNO ID: [id number] Author: KALLI AC RT(R) Service: Radiology Author Type: Technologist Type: Progress Notes Filed: 06/24/2024 12:06 Note Text: Radiology Service Progress Note PATIENT NAME: George Queen DATE OF SERVICE: June 24, 2024 TIME: 12:05 PM PATIENT IDENTITY VERIFICATION COMPLETED USING TWO (2) IDENTIFIERS: Name and Date of confirmed by patient verbally. FALL SCREENING: Has the patient had 2 falls in the last year or 1 fall with injury or currently using an Ambulatory Assistive Device (Walker, Cane, Wheelchair, Crutches, etc.)? No PATIENT GENDER DATA: Male PATIENT RELEVANT IMPLANT DATA REVIEWED: Not Applicable PATIENT PRESENTS WITH AN IMPLANTABLE OR ATTACHED STATE ATTORNEY: No RADIOLOGY DEPARTMENT: General X-ray: Exam(s) Completed: Lower Extremity X-Ray(s): Knee, AP / Lat / Tunne / Merchant Bilateral PERIPHERAL IV DATA: Not applicable SIGNED BY: RT Arnold(R) June 24, 2024 12:05 PM [facility] Evaluation note Note Date & Type Note Facility Evaluation note Diagnosis Osteoarthritis of right knee, unspecified osteoarthritis type Chronic pain of right knee documented in this encounter [facility] Evaluation note Note Date & Type Note Facility Evaluation note Diagnosis Primary osteoarthritis of right knee- Primary Primary localized osteoarthrosis, lower leg Status post right knee replacement documented in this encounter [facility] Evaluation note Note Date & Type Note Facility Evaluation note Diagnosis Pain Generalized pain documented in this encounter [facility] History of Present illness Narrative Note Date & Type Note Facility History of Present illness Narrative Patient is a 46-year-old male with chief complaint of productive cough, fever and ear blockage for 1 week. Patient complains of wheezing, chest pain and shortness of breath. Patient states T-max was 101 F with chills. Patient denies any ear pain with ear blockage. Patient denies any eye pain or eye discharge. Patient denies any sore throat or difficulty swallowing. Patient states no relief with wqqr-qlg-[id number] medications. [facility] Work Phone: History of Present illness Narrative Note Date & Type Note Facility History of Present illness Narrative Patient is a 46-year-old male with chief complaint of productive cough, fever and ear blockage for 1 week. Patient complains of wheezing, chest pain and shortness of breath. Patient states T-max was 101 F with chills. Patient denies any ear pain with ear blockage. Patient denies any eye pain or eye discharge. Patient denies any sore throat or difficulty swallowing. Patient states no relief with rysq-pat-uxhaebo medications. [facility] Work Phone: Reason for visit Narrative Imaging (Routine) - Closed Note Date & Type Note Facility Reason for visit Narrative Specialty Diagnoses / Procedures Referred By Dylan t Referred To Contact Radiology Diagnoses Osteoarthritis of right knee, unspecified osteoarthritis type Chronic pain of right knee Procedures MRI KNEE RIGHT WO CONTRAST Gulshan Henderson, ACCOUNTS RECEIVABLE ANALYST - GUN PROFILER [address] [address] Phone: tel: fax: Referral ID Status Reason Start Date Expiration Date Visits Re quested Visits Authorized [id number] Closed 11/06/2024 05/05/2025 1 1 [facility] Summary Purpose Family History No Family History Records FoundNo Family History Records FoundNo Family History Records FoundNo Family History Records FoundNo Family History Records FoundNo Family History Records FoundNo Family History Records Found Advance Directives No Advanced Directives Records FoundNo Advanced Directives Records FoundNo Advanced Directives Records FoundNo Advanced Directives Records FoundNo Advanced Directives Records FoundNo Advanced Directives Records FoundNo Advanced Directives Records Found Additional Source Comments (unrecognized sect ion and content) No Status Records FoundNo Status Records FoundNo Status Records FoundNo Status Records FoundNo Status Records FoundNo Status Records FoundNo Status Records Found INFORMATION SOURCE (unrecogn ized section and content) DATE CREATED AUTHOR 02/25/2022 [facility] DATE CREATED AUTHOR AUTHOR'S ORGANIZ ATION 02/25/2022 [facility] DATE CREATED AUTHOR AUTHOR'S ORGANIZ ATION 12/16/2022 [facility] DATE CREATED AUTHOR AUTHOR'S ORGANIZ ATION 05/09/2023 [facility] DATE CREATED AUTHOR AUTHOR'S ORGANIZ ATION 06/26/2024 [facility] DATE CREATED AUTHOR AUTHOR'S ORGANIZ ATION 11/23/2024 [facility] DATE CREATED AUTHOR AUTHOR'S ORGANIZ ATION 02/05/2025 [facility] Source Comments (unrecognize d section and content) In the event this informatio n is protected by the Federal Confidentiality of Alcohol and Drug Abuse Patient Records regulations: The Federal rules restrict any use of the information to criminally investigate or prosecute any alcohol or drug abuse patient.[facility] the event this information is protected by the Federal Confidentiality of Alcohol and Drug Abuse Patient Records regulations: The Federal rules restrict any use of the information to criminally investigate or prosecute any alcohol or drug abuse patient.[facility] the event this information is protected by the Federal Confidentiality of Alcohol and Drug Abuse Patient Records regulations: The Federal rules restrict any use of the information to criminally investigate or prosecute any alcohol or drug abuse patient.[facility] Care Teams (unrecognized sec tion and content) Joint Sealer Relationship Specialty Start Date End Date Jimy Aguila MD [address] [place] [address] PCP - General 11/21/00 Joint Sealer Relationship Specialty Start Date End Date Nino Tijerina MD [address] [place] [phone] PCP - General Family Medicine 02/15/22 Joint Sealer Relationship Specialty Start Date End Date Jimy Aguila MD [address] [place] [id number] PCP - General 11/21/00 Gulshan Henderson, KEYSHAWN [address] [address] [facility] 12/17/24 Enriqueta Alonso APRN.GUN PROFILER [address] [place], [place] [id number] [facility] 12/19/24 Phil Duke ACCOUNTS RECEIVABLE ANALYST.GUN PROFILER [address] [place], [place] [id number] [facility] 01/07/25 Joint Sealer Relationship Specialty Start Date End Date Jimy Aguila MD [address] [place], [place] [id number] PCP - General 11/21/00 Gulshan Henderson, KEYSHAWN [address] [address] [facility] 12/17/24 Enriqueta Alonso ACCOUNTS RECEIVABLE ANALYST.GUN PROFILER [address] [place], [place] [address] [facility] 12/19/24 Phil Duke ACCOUNTS RECEIVABLE ANALYST.GUN PROFILER [address] [place], [place] [id number] [facility] 01/07/25 Reason for Visit (unrecogniz ed section and content) Reason Comments Follow Up Reason Comments Radio Gen RMP Radiology Service Pr ogress NotePATIENT NAME: George MichaelkarinaMRN: [id number] OF SERVICE: February 03, 2025TIME: 2:22 PMPATIENT IDENTITY VERIFICATION COMPLETED USING TWO (2) IDENTIFIERS: Name and Date of confirmed by patient verbally.FALL SCREENING: Has the patient had 2 falls in the last year or 1 fall with injury or currently using an Ambulatory Assistive Device (Walker, Cane, Wheelchair, Crutches, etc.)? NoPATIENT GENDER DATA: Assigned male at birthPATIENT RELEVANT IMPLAN Specialty Diagnoses / Procedures Referred By Contac t Referred To Contact XR IMAGING Diagnoses Pain Procedures XR KNEE GENERAL 4V AP BOTH/PA BOTH/LAT/MERC RIGHT RADIOLOGIC EXAM KNEE COMPLETE 4/MORE VIEWS Abril Barry MD [address] [place] [phone] Phone: tel: fax: [place] [phone] Referral ID Status Reason Start Date Expiration Date V isits Requested Visits Authorized [id number] Closed Auto-Generate d Referral 01/13/2025 02/12/2026 1 1 FOR RECORDS PERTAINING TO PATIENTS WHO ARE OR HAVE BEEN ENROLLED IN A CHEMICAL DEPENDENCY/SUBSTANCEABUSE PROGRAM, SOME INFORMATION MAY BE OMITTED. This clinical summary was aggregated from multiple sources. Caution should be exercised in using it in the provision of clinical care. This summary normalizes information from multiple sources, and as a consequence, information in this document may materially change the coding, format and clinical context of patient data. In addition, data may be omitted in some cases. CLINICAL DECISIONS SHOULD BE BASED ON THE PRIMARY CLINICAL RECORDS. [employer] provides no warranty or guarantee of the accuracy or completeness of information in this document.
--- NOTE | 2025-07-21 19:04 | CA.SCORE ---
Calcium Scoring Date of Study:: 07/17/25 Indications Indications: Family history Coronary Calcium Scoring: High-resolution Computed Tomographic imaging of the chest was performed on [07/17/2025], with particular attention paid to the coronary arteries. Images from the examination were analyzed for the presence and extent of coronary artery calcification , using coronary calcium quantification software. The patient tolerated the procedure well and there were no complications. The results of the coronary calcification analysis are provided below. Findings Coronary Artery Left Main (LM): 0 Left Anterior Descending (LAD): 0 Left Circumflex (LCX): 0 Right Coronary Artery (RCA): 0 Total Agatston Score: 0 Percentile Rankin Calcium Scoring Interpretation: Different methods to categorize the overall amount of coronary plaque. Overall amount CAC SIS Visual of coronary plaque P1 Mild -100 <2 1-2 vessels with mild amount of plaque P2 Moderate 101-300 3-4 1-2 vessels with moderate amount, 3 vessels with mild amount of plaque P3 Severe 301-999 5-7 3 vessels with moderate amount, 1 vessel with severe amount of plaque P4 Extensive >1000 >8 2-3 vessels with severe amount of plaque Conclusion: No atherosclerotic plaquing noted.
== END | disposition home or self-care (01) ==
PROVIDERS: PCP Physician Assistant; Referring Provider Physician Assistant; Visit Provider Physician Assistant
DX: Z13.6 Encounter for screening for cardiovascular disorders (principal)
CPT/HCPCS: 75571; 76380